=== PATIENT | female | born 1950 | race African-American/Black ===

== ENCOUNTER 2024-05-31 20:31 | Emergency (ER) | payer OTHER ==
[~2024-05-31] VITALS: Ht 170.2 cm; Wt 60.0 kg
[2024-05-31] MEDS: ALBUTEROL (0.083%) 2.5MG/3ML NEB HHN STA (20:38)
[2024-05-31] MEDS: IPRATROPIUM BROMIDE (0.02%) 0.5MG/2.5ML NEB HHN STA (20:38)
[2024-05-31 21:33] LABS: BASOPHILS % 0.5 % (0.0-2.0); DIFFERENTIAL COMMENT 0; HEMOGLOBIN. 14.2 g/dL (12.0-16.0); LYMPHOCYTES % 12.2 % (20.0-50.0); MEAN CORPUSCULAR HEMOGLOBIN 34.2 pg (28.0-32.0); MEAN CORPUSCULAR HGB CONC 32.3 g/dL (31.0-37.0); MEAN CORPUSCULAR VOLUME 105.7 fL (81.0-99.0); MEAN PLATELET VOLUME 8.5 fl (7.4-10.4); MONOCYTES % 9.4 % (2.0-8.0); NEUTROPHILS % 73.9 % (40.0-76.0); PLATELET 209 x1000/uL (130-400); RED BLOOD CELL COUNT 4.16 mill/uL (4.2-5.4); RED CELL DISTRIBUTION WIDTH 15.6 % (11.6-14.6); WHITE BLOOD COUNT 8.9 x1000/uL (4.5-11.0)
[2024-05-31] MEDS: METHYLPREDNISOLONE SOD SUCC 125MG/2ML (ACT-O-VIAL) IV ONE (21:33)
[2024-05-31] MEDS: MAGNESIUM 2 G PREMIX 50 ML IV ONE (21:33)
[2024-05-31 21:41] LABS: CHLORIDE 102 mEq/L (98-107); SODIUM 135 mEq/L (136-145)
[2024-05-31 21:42] LABS: CARBON DIOXIDE 26 mEq/L (21-32)
[2024-05-31 21:43] LABS: CALCIUM 9.1 mg/dL (8.7-10.4)
[2024-05-31 21:47] LABS: CREATININE 0.8 mg/dL (0.6-1.0); GLUCOSE 82 mg/dL (70-105); UREA NITROGEN BLOOD 12 mg/dL (9-23)
[2024-05-31 21:48] LABS: TROPONIN I HIGH SENSITIVITY 7 ng/L (3.0-34)
[2024-05-31 21:54] LABS: POTASSIUM 6.5 mEq/L (3.5-5.1)
[2024-05-31 22:40] VITALS: PULSE 94; RESP 18; O2SAT 99
[2024-05-31] MEDS: ALBUTEROL (0.083%) 2.5MG/3ML NEB HHN ONE (22:47)
[2024-05-31] MEDS: SODIUM ZIRCONIUM CYCLOSILICATE 10GM/PACKET PO ONE (23:05)
[2024-05-31] MEDS: SODIUM CHLORIDE 0.9% 1,000 ML IV ONE (23:06)
[2024-06-01 00:31] LABS: POTASSIUM 3.6 mEq/L (3.5-5.1)
[2024-06-01] MEDS ORDERED: BENZONATATE 100MG CAPSULE PO PRN (01:15)
[2024-06-01] MEDS ORDERED: MAGNESIUM HYDROXIDE 400MG/5ML 30ML UDC PO PRN (01:15)
[2024-06-01] MEDS ORDERED: ACETAMINOPHEN 325MG TABLET PO PRN (01:15)
[2024-06-01] MEDS ORDERED: IPRATROPIUM/ALBUTEROL 0.5-3(2.5)MG/3ML NEB NEB PRN (01:15)
[2024-06-01] MEDS ORDERED: ZOLPIDEM TARTRATE 5MG TABLET PO PRN (01:15)
[2024-06-01] MEDS ORDERED: CLONIDINE 0.1MG TABLET PO PRN (01:15)
[2024-06-01] MEDS ORDERED: MAGNESIUM/ALUMINUM HYDROXIDE/SIMETHICONE 30ML UDC PO PRN (01:15)
[2024-06-01] MEDS ORDERED: DIPHENHYDRAMINE 50MG/ML VIAL IV PRN (01:15)
[2024-06-01] MEDS ORDERED: ONDANSETRON HCL 4MG/2ML INJ IV PRN (01:15)
[2024-06-01] MEDS: IPRATROPIUM/ALBUTEROL 0.5-3(2.5)MG/3ML NEB HHN SCH (03:30)
[2024-06-01 03:35] VITALS: PULSE 88; RESP 18; O2SAT 99
[2024-06-01 05:00] VITALS: TEMP 37.28076
[2024-06-01] MEDS ORDERED: ENOXAPARIN 40MG/0.4ML SYR SUBCUT SCH (06:00)
[2024-06-01 07:30] VITALS: BP 105/53; PULSE 78; RESP 18; O2SAT 98
[2024-06-01 08:31] VITALS: TEMP 99.1
[2024-06-01] MEDS: METHYLPREDNISOLONE SOD SUCC 125MG/2ML (ACT-O-VIAL) IV SCH (08:31)
[2024-06-01] MEDS: ACETAMINOPHEN 325MG TABLET PO PRN (08:31)
[2024-06-01] MEDS: FAMOTIDINE 20MG TABLET PO SCH (08:32)
[2024-06-01] MEDS: SODIUM CHLORIDE 0.9% 3ML FLUSH IVF SCH (08:33)
[2024-06-01] MEDS ORDERED: GUAIFENESIN 600MG ER TABLET PO SCH (09:00)
[2024-06-01] MEDS ORDERED: DOCUSATE SODIUM 100MG CAPSULE PO SCH (09:00)
== END 2024-06-01 09:00 | disposition left against medical advice (07) ==
LOC: ER 20:31 → CANBEDREQ 06-01 09:24
DX: J44.1 Chronic obstructive pulmonary disease with (acute) exacerbation (principal)
CPT/HCPCS: 99285; 96365; 71045; 96361; 96375 ×2; 80048; 85025; 84484; 36415; 94640; 93005; 84132; J3475; J2919 ×2; J7030

== ENCOUNTER 2024-08-20 11:51 | Emergency (ER) | payer OTHER ==
[~2024-08-20] VITALS: Ht 167.6 cm; Wt 64.0 kg
[2024-08-20] MEDS: IPRATROPIUM BROMIDE (0.02%) 0.5MG/2.5ML NEB HHN STA (11:59)
[2024-08-20] MEDS: ALBUTEROL (0.083%) 2.5MG/3ML NEB HHN STA (11:59)
[2024-08-20] MEDS: METHYLPREDNISOLONE SOD SUCC 125MG/2ML (ACT-O-VIAL) IV STA (12:27)
[2024-08-20] MEDS: MAGNESIUM 2 G PREMIX 50 ML IV ONE (12:27)
[2024-08-20 12:30] LABS: HEMATOCRIT. 42.5 % (36.0-48.0); HEMOGLOBIN. 13.3 g/dL (12.0-16.0); MEAN CORPUSCULAR HEMOGLOBIN 31.9 pg (28.0-32.0); MEAN CORPUSCULAR HGB CONC 31.2 g/dL (31.0-37.0); MEAN CORPUSCULAR VOLUME 102.3 fL (81.0-99.0); MEAN PLATELET VOLUME 8.1 fl (7.4-10.4); PLATELET 215 x1000/uL (130-400); RED BLOOD CELL COUNT 4.15 mill/uL (4.2-5.4); WHITE BLOOD COUNT 7.5 x1000/uL (4.5-11.0)
[2024-08-20 12:37] LABS: DIFFERENTIAL COMMENT 1
[2024-08-20 12:38] LABS: CHLORIDE 104 mEq/L (98-107); POTASSIUM 3.6 mEq/L (3.5-5.1); SODIUM 141 mEq/L (136-145)
[2024-08-20 12:39] LABS: CARBON DIOXIDE 31 mEq/L (21-32)
[2024-08-20 12:40] LABS: CALCIUM 9.1 mg/dL (8.7-10.4)
[2024-08-20 12:44] LABS: CREATININE 0.6 mg/dL (0.6-1.0); GLUCOSE 167 mg/dL (70-105)
[2024-08-20 12:45] VITALS: PULSE 114; RESP 24; O2SAT 94
[2024-08-20 12:45] LABS: UREA NITROGEN BLOOD 6 mg/dL (9-23)
[2024-08-20 12:47] LABS: TROPONIN I HIGH SENSITIVITY 28 ng/L (3.0-34)
[2024-08-20 13:27] LABS: ANISOCYTOSIS 1+
[2024-08-20 13:28] LABS: PLATELET ESTIMATE NORMAL
[2024-08-20 18:29] VITALS: BP 126/78; PULSE 101; RESP 15; TEMP 36.72516; O2SAT 100
== END 2024-08-20 18:34 | disposition short-term general hospital (02) ==
LOC: ER 11:51 → EDBEDREQTM 16:58 → EDBEDREQ 16:58 → ER 18:34
DX: J44.1 Chronic obstructive pulmonary disease with (acute) exacerbation (principal); F17.200 Nicotine dependence, unspecified, uncomplicated; R09.81 Nasal congestion; Z20.822 Contact with and (suspected) exposure to COVID-19
CPT/HCPCS: 99285; 96365; 71045; 96375; 87426; 80048; 83880; 85025; 84484; 87804 ×2; 36415; 94640; 93005; J3475; J2919; 96374